=== PATIENT | female | born 1995 | race Caucasian/White ===

== ENCOUNTER 2022-07-16 08:19 | Day surgery (SDC) | payer OTHER ==
[2022-07-16] MEDS ORDERED: Bupivacaine 0.25% HCL 30 ML VIAL ONE (08:26)
[2022-07-16] MEDS ORDERED: EPINEPHrine 1 MG/ML AMP ONE (08:27)
[2022-07-16] MEDS ORDERED: Scopolamine 1.5 mg/72 hour Patch ONE (09:04)
[2022-07-16] MEDS ORDERED: Midazolam HCl 2 mg/2 ml Vial ONE (09:05)
[2022-07-16] MEDS ORDERED: SUGAMMADEX SODIUM 200 MG/2 ML VIAL ONE (09:14)
[2022-07-16] MEDS ORDERED: HYDROmorphone 0.5 MG/0.5 ML SYRINGE ONE (09:14)
[2022-07-16] MEDS ORDERED: PROPOFOL 20 ML ONE (09:18)
[2022-07-16] MEDS ORDERED: Esmolol 100 MG/10 ML VIAL ONE (09:18)
[2022-07-16] MEDS ORDERED: Dexamethasone 4 mg/ml Vial ONE (09:18)
[2022-07-16] MEDS ORDERED: Fentanyl 100 MCG/2 ML VIAL ONE (09:18)
[2022-07-16] MEDS ORDERED: ePHEDrine Sulfate 50 MG/10 ML VIAL ONE (09:18)
[2022-07-16] MEDS ORDERED: Rocuronium Bromide 10 MG/ML (10ML VIAL) ONE (09:18)
[2022-07-16] MEDS ORDERED: Ondansetron PF 4 MG/2 ML Vial ONE (09:18)
[2022-07-16] MEDS ORDERED: CEFAZOLIN 1 GM VIAL ONE (09:26)
[2022-07-16] MEDS ORDERED: Phenylephrine 10 MG/ML VIAL ONE (09:54)
[2022-07-16] MEDS ORDERED: Ketorolac Tromethamine 30 MG/ML VIAL ONE (10:05)
[2022-07-16] MEDS ORDERED: HYDROcodone/Acetaminophen 5/325 mg Tablet ONE (11:07)
== END 2022-07-16 11:50 | disposition home or self-care (01) ==
LOC: CSHSDC 08:19
PROVIDERS: ATTEND Surgery
PROC: 0DTJ4ZZ Resection of Appendix, Percutaneous Endoscopic Approach (ICD-10-PCS; principal; 2022-07-16)
DX: K35.80 Unspecified acute appendicitis (principal)
CPT/HCPCS: 88304; A4649; J0171; J0690; J1100; J1170; J1885; J2250; J2370; J2405; J2704; J3010; S0020

== ENCOUNTER 2023-09-09 07:38 | Outpatient (CLI) | payer OTHER | END 2023-09-09 07:39 | disposition home or self-care (01) | LOC: CSHULT 07:38 | PROVIDERS: ATTEND Physician Assistant | DX: N63.15 Unspecified lump in the right breast, overlapping quadrants (principal) ==

== ENCOUNTER 2024-04-20 07:53 | Outpatient (CLI) | payer BC | END 2024-04-20 07:54 | disposition home or self-care (01) | LOC: CSHULT 07:53 | PROVIDERS: ATTEND Physician Assistant | DX: N63.15 Unspecified lump in the right breast, overlapping quadrants (principal) ==